=== PATIENT | female | born 1990 | race Caucasian/White ===

== ENCOUNTER → 2019-04-25 | Outpatient (CLI) | payer OTHER ==
--- NOTE | 2019-04-25 17:23 | NEURO WORKBENCH EEG REPORT ---
EEG Report Patient: Lucretia Rice ID: [id number] Referring Doctor: Jose De Jesus Zambrano Date: 04/25/2019 Reason for study: Evaluate Epileptiform activity Medications: Vitamin History: This is a 28 year old female with a history of a seizure in 2017 while and a seizure on December 10, 2018 after delivery of her second child. There have been no subsequent seizures. This EEG was requested for evaluation of epileptiform activity. EEG Interpretation: This EEG was recorded during wakefulness, stage I, and stage II sleep. There was frequent drowsiness/stage I sleep. The awake EEG is characterized by a well organized background with a well developed and reactive posterior dominant rhythm (PDR) of approximately 9-10 Hz. The remainder of the background consisted of low amplitude diffuse beta activity. The EEG is symmetric in amplitudes and frequencies. Photic stimulation resulted in photic driving, and there was no epileptiform activity elicited with photic stimulation. Hyperventilation resulted in the appearance of diffuse fragmentary delta- theta activity (normal for age) and no epileptiform activity was elicited. Stage I sleep was achieved and characterized by slow rolling eye movements, slowing of the background rhythm, and vertex waves. Stage II sleep was achieved and symmetric sleep spindles were noted. There were no definitive epileptiform abnormalities. There were three sharply contoured waveforms in the left parietal region, maximal at P3, typically during stage I sleep. During stage I and stage II sleep there were frequent independent bi-temporal small sharp spikes (benign epileptiform transients of sleep (BETS)) which is a benign finding. There were no seizures. The EKG showed a regular rhythm with typically 60-89 beats per minute. EEG Impression: While there were no definitive epileptiform abnormalities, there were three sharply contoured waveforms in the left parietal region, maximal at P3, typically during stage I sleep of uncertain clinical significance. If there is high clinical suspicion for epilepsy, then additional EEG evaluation should be considered with a additional sleep-deprived EEG or more prolonged EEG monitoring. MRI of the brain may be considered if clinically indicated. Diffuse beta activity was also noted which may be seen with medications such as benzodiazepines. INTERPRETING NEUROLOGIST: Isra Joel MD Board certified by the [place] [employer] in Neurology, Clinical Neurophysiology, and Sleep Medicine [facility]
== END ==
LOC: NEURO 08:25
PROVIDERS: ATTEND Pediatrics
DX: G40.909 Epilepsy, unspecified, not intractable, without status epilepticus (principal)
CPT/HCPCS: 95819